=== PATIENT | male | born 1995 | race American Indian/Alaskan Native ===

== ENCOUNTER 2016-07-06 16:44 | Emergency (ER) | payer SELFPAY ==
--- NOTE | 2016-07-06 18:04 | Cat Scan Report ---
FINAL REPORT EXAM: CT HEAD/BRAIN WO CON HISTORY: Trauma/pain/swelling TECHNIQUE: Noncontrast serial axial images from skull base to vertex PRIORS: None. FINDINGS: Soft tissue swelling is seen in the left periorbital region.There is no mass effect or midline shift. There are no abnormal intra or extra-axial fluid collections. Cortical sulci and lateral ventricles are within normal limits for size and configuration. Basilar cisterns are patent. No acute intracranial hemorrhage is identified. Visualized paranasal sinuses and mastoid air cells are well aerated. No acute osseous abnormality is identified. IMPRESSION: 1. No acute intracranial hemorrhage is identified. 2. Soft tissue swelling is noted in the left periorbital region. No underlying fracture is identified.
--- NOTE | 2016-07-06 18:15 | Cat Scan Report ---
FINAL REPORT EXAM: CT FACIAL BONES WO CON HISTORY: Trauma/pain/swelling TECHNIQUE: Noncontrast serial axial images through the face with coronal and sagittal reconstruction PRIORS: None. FINDINGS: No gross abnormality is seen in the visualized portion of the brain. There is soft tissue swelling in the left periorbital region. Orbits appear intact. There is mucosal thickening the alveolar recesses of the maxillary sinuses. Mastoid air cells are well aerated. Nasal bones appear intact. Zygomatic arches appear intact. Mandible appears intact. No acute fracture is identified. IMPRESSION: 1. Soft tissue swelling is noted in the left periorbital region. 2. No acute fracture is identified.
[2016-07-07] MEDS ORDERED: TYLENOL ONE (01:49)
[2016-07-07] MEDS ORDERED: TYLENOL PO ONE (01:52)
[2016-07-07] MEDS ORDERED: NORCO 5/325 PO ONE (06:46)
--- NOTE | 2016-07-07 06:55 | Emergency Department Report ---
HPI - General Chief Complaint: Head Injury Time Seen by Provider: 07/07/16 06:24 - HPI HPI: This is a 21-year-old -[place] male who presents to the emergency department from home, dropped off by a friend, with complaint of a fall, hitting his head and loss of consciousness. He says he was at a gas station yesterday and thinks he slipped on something and is unsure what he hit his head on but did have loss of consciousness. The patient says the next thing he remembers was being in the car, with his cousin who was driving, on the way back home. He has pain from the left eye and eyebrow over towards the left ear with a small abrasion and some swelling over the left eye. He is unsure last time he had a tetanus shot. He did not take anything for symptoms prior to presentation. He denies any vision change, slurred speech or any neurological deficits. He denies any past medical history. No recent travel or sick contacts at home. He does not have a primary care doctor. ED Past Medical Hx - Past Medical History Previous Medical History?: No - Surgical History Past Surgical History?: No - Social History Smoking Status: Current Some Day Smoker Substance Use Type: None ED Review of Systems ROS: Stated complaint: LT EYE INJURY Other details as noted in HPI Constitutional: denies: chills, fever Eyes: denies: eye pain, eye discharge, vision change ENT: denies: ear pain, throat pain Respiratory: denies: cough, shortness of breath, wheezing Cardiovascular: denies: chest pain, palpitations Gastrointestinal: denies: abdominal pain, nausea, diarrhea Genitourinary: denies: urgency, dysuria Musculoskeletal: denies: back pain, joint swelling, arthralgia Skin: other (abrasion). denies: rash, lesions Neurological: headache. denies: weakness Physical Exam - Physical Exam Vital Signs: Vital Signs 07/06/16 17:14 Temperature 98.3 F Pulse Rate 110 H Blood Pressure 157/83 O2 Sat by Pulse 100 Oximetry Physical Exam: GENERAL: The patient is well-developed well-nourished. HEENT: Normocephalic. Atraumatic. Extraocular motions are intact. Patient has moist mucous membranes. Pupils equal reactive to light bilaterally. There is some mild swelling and ecchymosis to the left eyebrow region with a very small 1 cm laceration. Oropharynx is clear. NECK: Supple. Trachea is midline. No tenderness to palpation or deformity. Full range of motion. CHEST/LUNGS: Clear to auscultation. There is no respiratory distress noted. HEART/CARDIOVASCULAR: Regular. There is no tachycardia. There is no gallop rub or murmur. ABDOMEN: Abdomen is soft, nontender. Patient has normal bowel sounds. There is no abdominal distention. SKIN: There is some mild swelling and ecchymosis and/or a non-expanding hematoma to the left eyebrow region where there is a transverse 1 cm linear laceration. NEURO: The patient is awake, alert, and oriented. The patient is cooperative. The patient has no focal neurologic deficits. The patient has normal speech. Cranial nerves II through XII grossly intact. MUSCULOSKELETAL: There is no tenderness or deformity. There is no limitation range of motion. There is no evidence of acute injury. ED Course Vital Signs 07/06/16 17:14 Temperature 98.3 F Pulse Rate 110 H Blood Pressure 157/83 O2 Sat by Pulse 100 Oximetry - Laceration /Wound Repair Left Face Wound Location: face (Left eyebrow) Wound Length (cm): 1 Wound's Depth, Shape: superficial, linear Wound Explored: clean Anesthesia: 1% Lidocaine Volume Anesthetic (ccs): 2 Wound Repaired With: sutures Suture Size/Type: 5:0, proline Number of Sutures: 2 Layer Closure?: No Sterile Dressing Applied?: Yes - Pulse Oximetry Interpretation Digit-Finger Initial Pulse Oximetry Readin O2 Sat by Pulse Oximetry: 100 Actions Taken: none ED Medical Decision Making - Radiology Data Radiology results: report reviewed CT of the head does not show any acute process including no hemorrhage, mass, shift, diffuse edema or skull fracture. CT of the facial bones does not show any fracture, dislocation or any acute process. - Medical Decision Making This is a 21-year-old male who presents after he fell and hit his head and had some loss of consciousness. He presents with a small laceration to the left eyebrow region with some swelling and ecchymosis. The patient had a CT of the head and facial bones that did not show any bleed, shift, mass, fracture or any acute processes. Physical exam patient has normal sounding heart and lungs to auscultation. There are no focal, motor or sensory deficits and cranial nerves are intact. The patient had a small laceration over the left eyebrow that was closed with 2 simple interrupted sutures. The patient does not appear to have any neurological deficits, it is possible patient has a mild concussion as he says that he feels like he is slightly confused and/or having some short-term memory loss. This is not apparent on physical exam and he appears safe for discharge home. However we discussed limiting stimuli, post concussive like symptoms and the patient was discharged home with referrals for primary care and neurology. He will return to the ER with any worsening of his symptoms or any acute distress. - Differential Diagnosis laceration, concussion, brain bleed, skull/facial fracture, contusion Critical Care Time: No Critical care attestation.: If time is entered above; I have spent that time in minutes in the direct care of this critically ill patient, excluding procedure time. ED Disposition Clinical Impression: Loss of consciousness Head injury Qualifiers: Encounter type: initial encounter Qualified Code(s): S09.90XA - Unspecified injury of head, initial encounter Abrasion of left eyebrow Qualifiers: Encounter type: initial encounter Qualified Code(s): S00.212A - Abrasion of left eyelid and periocular area, initial encounter Headache Qualifiers: Headache type: unspecified Headache chronicity pattern: unspecified pattern Intractability: not intractable Qualified Code(s): R51 - Headache Eyebrow laceration Qualifiers: Encounter type: initial encounter Laterality: left Qualified Code(s): S01.112A - Laceration without foreign body of left eyelid and periocular area, initial encounter Disposition: DISCHARGED TO HOME OR SELFCARE Is pt being admited?: No Condition: Stable Instructions: Suture Care (ED), Laceration (ED), Concussion (ED), Minor Head Injury (ED) Additional Instructions: Please follow-up with a primary care doctor in the next few days. I have also given you a referral for a local neurologist, Dr. Brown, to follow-up if you continue to have any concussion-like symptoms. Return to the emergency department with any worsening of your symptoms or any acute distress. The sutures will need to be removed in 7 days. You need be seen sooner if there is any surrounding redness, discharge or pus or any signs of infection. Use soap and water to clean the area and then make sure it remains dry after cleaning it. Referrals: PRIMARY CARE, [Primary Care Provider] - 3-5 Days JONATHAN BROWN MD [Staff Physician] - 3-5 Days [facility] [Outside] - 3-5 Days Time of Disposition: 09:11
[2016-07-07] MEDS ORDERED: TENIVAC IM ONE (07:00)
--- NOTE | 2016-07-07 07:42 | Cat Scan Report ---
CT HEAD WITHOUT CONTRAST INDICATION: Headache, trauma, LOC. COMPARISON: Yesterday. FINDINGS: Noncontrast head CT demonstrates normal ventricles and sulci without acute or recent infarct, hemorrhage, mass effect or midline shift. No abnormal extra-axial fluid collections. Posterior fossa structures and basilar cisterns are within normal limits. Clear paranasal sinuses and mastoid air cells. Leftward nasal septal deviation with possible geovany bullosa on the right. Intact calvarium. Left frontal/supraorbital mild scalp swelling. CONCLUSION: No acute intracranial CT abnormality, as described. Thank you for the opportunity to participate in this patient's care.
[2016-07-07] MEDS ORDERED: XYLOCAINE 2% INFILTRATI ONE (09:10)
[2016-07-07 09:28] VITALS: BP 122/87
== END 2016-07-07 09:34 | disposition home or self-care (01) ==
LOC: ED 16:44
DX: S06.891A Other specified intracranial injury with loss of consciousness of 30 minutes or less, initial encounter (principal); S01.112A Laceration without foreign body of left eyelid and periocular area, initial encounter; R51 Headache; F17.200 Nicotine dependence, unspecified, uncomplicated; W01.10XA Fall on same level from slipping, tripping and stumbling with subsequent striking against unspecified object, initial encounter; Y93.89 Activity, other specified; Y99.8 Other external cause status; Y92.89 Other specified places as the place of occurrence of the external cause
CPT/HCPCS: 70450; 70486; 90471; 90714